=== PATIENT | male | born 1965 | race Caucasian/White ===

== ENCOUNTER 2016-09-25 20:43 | Emergency (ER) | payer BC ==
[2016-09-25 20:47] VITALS: BP 116/87
--- NOTE | 2016-09-25 21:36 | UC ---
Abdominal Pain Male HPI - HPI Summary HPI Summary: 4 DAYS OF LOOSE STOOL AND ABDOMINAL CRAMPING. NO N/V. NO NEW MEDS OR RECENT TRAVEL. NO NEW/QUESTIONABLE FOODS. NO FEVER BUT HAS HAD CHILLS. - History of Current Complaint Chief Complaint: UCAbdominalPain Stated Complaint: DIARRHEA,STOMACH CRAMPS Time Seen by Provider: 09/25/16 21:28 Hx Obtained From: Patient Onset/Duration: Gradual Onset, Lasting Days, Still Present Severity Initially: Moderate Severity Currently: Moderate Pain Intensity: 0 Pain Scale Used: 0-10 Numeric Location: Diffuse Radiates: No Character: Cramping Aggravating Factor(s):: Food Alleviating Factor(s): Nothing Associated Signs And Symptoms: Positive: Diarrhea. Negative: Blood in Stool, Urinary Symptoms, Decreased Appetite, Nausea, Vomiting - Allergies/Home Medications Allergies/Adverse Reactions: Allergies Allergy/AdvReac Type Severity Reaction Status Date / Time SKIN CREAM - ?NAME Allergy Severe BLOTCHY Uncoded 09/25/16 20:47 SKIN Home Medications: Home Medications Loperamide CAP* [Imodium CAP*] 2 cap PO PRN 09/25/16 [History] PMH/Surg Hx/FS Hx/Imm Hx Cardiovascular History: Cardiac Disease - CARDIOMYOPATHY, Hypertension - Surgical History Surgical History: Yes Surgery Procedure, Year, and Place: LT KNEE SURGERY A CHILD. CARDIAC CATHERIZATION - Family History Known Family History: Positive: Hypertension - Social History Alcohol Use: Occasionally Substance Use Type: None Smoking Status (MU): Never Smoked Tobacco Have You Smoked in the Last Year: No - Immunization History Hx Tetanus, Diphtheria Vaccination: No Vaccination Up to Date: No Review of Systems Constitutional: Chills Respiratory: Negative Cardiovascular: Negative Gastrointestinal: Abdominal Pain, Diarrhea Genitourinary: Negative All Other Systems Reviewed And Are Negative: Yes Physical Exam Triage Information Reviewed: Yes Appearance: Well-Appearing, No Pain Distress, Well-Nourished Vital Signs: Initial Vital Signs Temp 97.5 F 09/25/16 20:44 Pulse 92 09/25/16 20:44 Resp 16 09/25/16 20:44 BP 116/87 09/25/16 20:44 Pulse Ox 99 09/25/16 20:44 Vital Signs Reviewed: Yes Eyes: Positive: Conjunctiva Clear ENT: Positive: Hearing grossly normal Neck: Positive: Supple Respiratory: Positive: No respiratory distress, No accessory muscle use Cardiovascular: Positive: Pulses Normal Abdomen Description: Positive: Soft, Distended, Other: - MILDLY TENDER DIFFUSELY. Negative: CVA Tenderness (R), CVA Tenderness (L), Guarding Bowel Sounds: Positive: Present Musculoskeletal: Positive: No Edema Neurological: Positive: Alert Psychological: Positive: Age Appropriate Behavior Skin: Negative: rashes Abd Pain Male Course/Dx - Course Course Of Treatment: STOOL SAMPLE SENT FOR TESTING. EMPIRIC TX WITH METRONIDAZOLE. F/U GI IF NEEDED. - Differential Dx/Clinical Impression Provider Diagnoses: DIARRHEA Discharge - Discharge Plan Condition: Stable Disposition: HOME Prescriptions: Diphenoxylat/Atrop 2.5-0.025M* [Lomotil TAB*] 1 - 2 tab PO QID PRN #20 tab MDD 8 PRN Reason: Diarrhea Metronidazole [Flagyl 500 MG TAB] 500 mg PO TID #28 tab Patient Education Materials: Acute Diarrhea (ED) Referrals: Christopher Mary MD [Primary Care Provider] - If Needed Bennett Meeks MD [Medical Doctor] - 1 Week Additional Instructions: STOOL SENT FOR TESTING TODAY. WILL TREAT EMPIRICALLY WITH METRONIDAZOLE. FOLLOW- UP WITH GI IF NOT IMPROVING WITH TREATMENT. GO TO THE ER WITHOUT FAIL IF YOUR SYMPTOMS WORSEN OR IF YOU DEVELOP BRIGHT RED BLOOD PER RECTUM.
[2016-09-25] MEDS ORDERED: metroNIDAZOLE TAB* 250 MG PO ONE ×2 (21:58→21:59)
--- NOTE | 2016-09-28 18:01 | UC ---
Progress - Progress Note Progress Note: Pt is + for Giardia is on correct treatment Flagyl---call patient notify of results and assure he is tolerating antibiotic well and sx are improving--If sx continue please follow with Dr. Mary..
== END 2016-09-25 22:35 | disposition home or self-care (01) ==
LOC: UCEAST 20:43
DX: A07.1 Giardiasis [lambliasis] (principal); I10 Essential (primary) hypertension; I42.9 Cardiomyopathy, unspecified
CPT/HCPCS: 83630; 87045; 87046; 87328; 87329; 87493; 87899; 99212; A9270-GY; G0463

== ENCOUNTER 2017-01-29 09:07 | Emergency (ER) | payer SELFPAY ==
[2017-01-29] MEDS ORDERED: Ibuprofen TAB* 600 MG PO ONE (09:18)
--- NOTE | 2017-01-29 10:16 | UC ---
Shoulder Pain HPI - HPI Summary HPI Summary: right shoulder injury happened while lifting chairs at work this morning-pain in shoulder radiating down arm fleeting and worse in certian positions - History of Current Complaint Chief Complaint: UCUpperExtremity Stated Complaint: SHOULDER INJURY Time Seen by Provider: 01/29/17 10:15 Hx Obtained From: Patient Onset/Duration: Sudden Onset, Lasting Hours Timing: Constant - with waxing and waneing shots of pain Severity Initially: Moderate Severity Currently: Moderate Location Of Pain: Is Discrete @ - right shoulder with extension in to upper arm Character: Sharp, Unable to Describe - stabbing Aggravating Factor(s): Movement Alleviating Factor(s): Rest Associated Signs And Symptoms: Positive: Negative Related History: Occupational Injury, Dominant Hand Right - Allergies/Home Medications Allergies/Adverse Reactions: Allergies Allergy/AdvReac Type Severity Reaction Status Date / Time SKIN CREAM - ?NAME Allergy Severe BLOTCHY Uncoded 01/29/17 09:15 SKIN Home Medications: Home Medications Lisinopril TAB* [Prinivil TAB 10 MG*] 10 mg PO DAILY 01/29/17 [History Confirmed 01/29/17] PMH/Surg Hx/FS Hx/Imm Hx Previously Healthy: No Cardiovascular History: Hypertension Other Cardiovascular History: Cardiomyopathy - Surgical History Surgical History: Yes Surgery Procedure, Year, and Place: LT KNEE SURGERY A CHILD. CARDIAC CATHERIZATION - Family History Known Family History: Positive: None, Hypertension - Social History Occupation: Employed Full-time Lives: With Family Alcohol Use: Occasionally Substance Use Type: None Smoking Status (MU): Never Smoked Tobacco Have You Smoked in the Last Year: No - Immunization History Most Recent Influenza Vaccination: Not UTD Hx Tetanus, Diphtheria Vaccination: No Vaccination Up to Date: No Review of Systems Constitutional: Negative Skin: Negative Eyes: Negative ENT: Negative Respiratory: Negative Cardiovascular: Negative Gastrointestinal: Negative Genitourinary: Negative Motor: Negative Neurovascular: Negative Musculoskeletal: Arthralgia - right shoulder Neurological: Negative Psychological: Negative Is Patient Immunocompromised?: No All Other Systems Reviewed And Are Negative: Yes Physical Exam Triage Information Reviewed: Yes Appearance: Well-Appearing, No Pain Distress, Well-Nourished Vital Signs: Initial Vital Signs Temp 97.2 F 01/29/17 09:11 Pulse 75 01/29/17 09:11 Resp 16 01/29/17 09:11 BP 164/103 12/08/17 09:11 Pulse Ox 97 01/29/17 09:11 Vital Signs Reviewed: Yes Eye Exam: Normal Eyes: Positive: Conjunctiva Clear ENT Exam: Normal ENT: Positive: Normal ENT inspection, Hearing grossly normal. Negative: Nasal congestion, Trismus, Muffled voice, Hoarse voice Dental Exam: Normal Neck exam: Normal Neck: Positive: Supple, Nontender Respiratory Exam: Normal Respiratory: Positive: Chest non-tender, No respiratory distress, No accessory muscle use Cardiovascular Exam: Normal Cardiovascular: Positive: RRR, Pulses Normal, Brisk Capillary Refill Musculoskeletal Exam: Normal Musculoskeletal: Positive: Strength Intact, ROM Intact, No Edema, Other: - some positions make pain worse Neurological Exam: Normal Neurological: Positive: Alert, Muscle Tone Normal Psychological Exam: Normal Skin Exam: Normal Diagnostics - Radiology No standard instances Xray Interpretation: Positive (See Comments) - evidence of old avulsion fracture Radiology Interpretation Completed By: Radiologist Re-Evaluation - Re-Evaluation First Eval Change: Improved Shoulder Course/Dx - Course Assessment/Plan: ibuprofen rice follow with ortho this comming week - Differential Dx/Diagnosis Provider Diagnoses: Right shoulder pain Discharge - Discharge Plan Condition: Stable Disposition: HOME Prescriptions: Meloxicam(NF) [Mobic(NF)] 7.5 mg PO BID #30 tab Patient Education Materials: Hypertension (ED), Shoulder Pain (ED) Forms: *Work Release Referrals: Ernesto Fox MD [Medical Doctor] - 3 Days Drake Sanchez MD [Medical Doctor] - 1 Week
--- NOTE | 2017-01-29 10:52 | RAD ---
HISTORY: Right shoulder pain, injury COMPARISONS: None VIEWS: 4, Frontal internal rotation, external rotation, outlet, and axillary views of the right shoulder FINDINGS: BONE DENSITY: Normal. BONES: There is a well-corticated bone fragment along the superior glenoid JOINTS: There is no arthropathy. ALIGNMENT: There is no dislocation. SOFT TISSUES: Unremarkable. OTHER FINDINGS: None. IMPRESSION: WELL-CORTICATED BONE FRAGMENT ALONG THE SUPERIOR GLENOID WHICH MAY REFLECT REMOTE AVULSION INJURY. NO ACUTE OSSEOUS INJURY. IF SYMPTOMS PERSIST, RECOMMEND REPEAT IMAGING
[2017-01-29 11:15] VITALS: BP 160/112
== END 2017-01-29 11:23 | disposition home or self-care (01) ==
LOC: UCEAST 09:07
DX: M25.511 Pain in right shoulder (principal); I10 Essential (primary) hypertension; I42.9 Cardiomyopathy, unspecified
CPT/HCPCS: 99212; A9270-GY; G0463

== ENCOUNTER 2017-07-07 14:50 | Emergency (ER) | payer BC ==
[2017-07-07 14:59] VITALS: BP 157/102
--- OUTSIDE RECORDS SUMMARY | 2017-07-07 15:10 | XMS REPORT ---
:1965 External Reference #:[id number] Author Organization [employer] Address [address] [place] [address] Phone [phone] Care Team Providers Name Role Phone Christopher Mary M.D. 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 Active Family History Date Family Member(s) Problem(s) Comments General Glaucoma Cousins Father No Current Problems Mother No Current Problems Social History Type Date Description Comments Marital Status Legal Status: Occup[employer] Work Status Full-Time Employment ETOH Use Occasionally consumes alcohol Smoking Patient has never smoked Recreational Drug Use Denies Drug Use Daily Caffeine Consumes on average 2 cups of regular coffee per day Allergies, Adverse Reactions, Alerts Date Description Reaction Status Severity Comments 05/08/2015 NKDA active Medications Medication Date Status Form Strength Qnty SIG Indications Ordering Provider Praluent Active Solution 75mg/ml Kelly Fernandes 00 Pen-Inject [employer]IST[employer] Diltiazem HCL ER Hx Caps ER 24HR 120mg Unknown Coated Beads 06/23/20 18 Pravastatin Hx Tablets 10mg Unknown Sodium - 06/24/19 18 Results Description No Information Procedures Date CPT Code Description Status 05/08/2015 38357 Determination Of Refractive State Completed 05/08/2015 78940 New Patient Comprehensive Exam Completed Plan of Care 06/24/2017 - Norma Bhat O.D.H25.813 Combined forms of age-related cataract, bilateralComments:You have been diagnosed with cataracts. If you are happy with your vision as it is now, then we willsee you at your next scheduled appointment. If you feel like your vision is getting worse before your scheduled appointment, please call Candice or Usha at [phone]. Smoking can increase the riskof developing or worsening any eye related disease, as well as affect your overall health. If you are a smoker, we strongly recommend that you quit.If you are not a smoker, we strongly recommend that you do not start.Follow up:1 Year Follow Up
--- NOTE | 2017-07-07 15:46 | RAD ---
Indication: Chest pain. 2 views the chest including dual energy PA views demonstrates no mediastinal shift. Heart is of normal size and configuration. Lung mckeon appear clear. IMPRESSION: No active cardiopulmonary disease is noted.
--- NOTE | 2017-07-07 15:47 | RAD ---
Indication: Left shoulder pain. 3 views of left shoulder demonstrates AC joint arthritis. No fracture is noted. IMPRESSION: AC joint arthritis without fracture.
[2017-07-07] MEDS ORDERED: Ketorolac INJ* 60 MG/2 ML VIAL IM ONE (16:14)
--- NOTE | 2017-07-07 16:17 | UC ---
Carolina Boudreaux Julia, scribed for Ajith Dalton MD on 07/07/17 at 1517 . Upper Extremity HPI - HPI Summary HPI Summary: This patient is a 51 year old M presenting to [facility] with a chief complaint of intermittent left shoulder pain for the past three days. Pain is rated 4/10. Pain increases with movement and deep inspiration. Denies fever and chills. Patient denies other symptoms and history of trauma. However, patient frequently does heavy lifting. - History of Current Complaint Chief Complaint: UCUpperExtremity Stated Complaint: SHOULDER PAIN Time Seen by Provider: 07/07/17 14:59 Hx Obtained From: Patient Onset/Duration: Lasting Days Pain Intensity: 4 Pain Scale Used: 0-10 Numeric Location Of Pain: Is Discrete @ - left shoulder Aggravating Factor(s): Lifting, Other - deep inspiration Alleviating Factor(s): Nothing Associated Signs And Symptoms: Positive: Other - SOB - Allergies/Home Medications Allergies/Adverse Reactions: Allergies Allergy/AdvReac Type Severity Reaction Status Date / Time SKIN CREAM - ?NAME Allergy Severe BLOTCHY Uncoded 02/09/17 10:33 SKIN Home Medications: Home Medications Alirocumab [Praluent Pen] 75 mg SC 07/07/17 [History] Labetalol TAB* [Trandate TAB*] 100 mg PO BID 07/07/17 [History Confirmed ] PMH/Surg Hx/FS Hx/Imm Hx Cardiovascular History: Cardiac Disease - Surgical History Surgical History: Yes Surgery Procedure, Year, and Place: LT KNEE SURGERY A CHILD. CARDIAC CATHERIZATION - Family History Known Family History: Positive: Hypertension - Social History Alcohol Use: Occasionally Substance Use Type: None Smoking Status (MU): Never Smoked Tobacco Have You Smoked in the Last Year: No - Immunization History Most Recent Influenza Vaccination: Not UTD Hx Tetanus, Diphtheria Vaccination: No Vaccination Up to Date: No Review of Systems Constitutional: Negative Musculoskeletal: Myalgia - left shoulder pain All Other Systems Reviewed And Are Negative: Yes Physical Exam - Summary Physical Exam Summary: VITAL SIGNS: Reviewed. GENERAL: Patient is a well-developed and nourished male who is lying comfortable in the stretcher. Patient is not in any acute respiratory distress. HEAD AND FACE: Normocephalic EYES: PERRLA, EOMI x 2. EARS: Hearing grossly intact. MOUTH: Oropharynx within normal limits. NECK: Supple, trachea is midline, no adenopathy, no JVD, no carotid bruit. CHEST: Symmetric, no tenderness at palpation LUNGS: Clear to auscultation bilaterally. No wheezing or crackles. CVS: Regular rate and rhythm, S1 and S2 present, no murmurs or gallops appreciated. ABDOMEN: Soft, non-tender. Bowel sounds are normal. No abdominal abnormal pulsations. EXTREMITIES: Full ROM in all major joints, no edema, no cyanosis or clubbing. Left shoulder: no ecchymosis, no deformity, no crepitation, FROM, point tenderness to posterior aspect of left shoulder NEURO: Alert and oriented x 3. No acute neurological deficits. Speech is normal and follows commands. SKIN: Dry and warm Triage Information Reviewed: Yes Vital Signs: Initial Vital Signs Temp 99.1 F 07/07/17 14:55 Pulse 100 07/07/17 14:55 Resp 18 07/07/17 14:55 BP 157/102 07/07/17 14:55 Pulse Ox 99 07/07/17 14:55 Vital Signs Reviewed: Yes Diagnostics - Radiology CXR Radiology Interpretation Completed By: Radiologist - No active cardiopulmonary disease is noted. Dr. Dalton has reviewed this report. Left Shoulder XR Radiology Interpretation Completed By: Radiologist - AC joint arthritis without fracture. Dr. Dalton has reviewed this report. - EKG Cardiac Rate: NL - 84 BPM Cardiac Rhythm: Sinus: Normal - at 15:21, no ST elevations, nml axis Upper Extremity Course/Dx - Course Course Of Treatment: Patient presents with a left shoulder pain. He does a lot of heavy lifting. He denies any history of trauma. EKG shows no acute pathology. X-rays of the left shoulder and chest negative for acute pathology. I believe that the patient has some arthralgia or a rotator cuff injury therefore the patient was given Toradol for pain. He will also be given a prescription for naproxen, follow up with primary care physician. She was instructed to return to the urgent care or the emergency room he develops any fever, chills, worsening pain, or any other symptom. He understands and agrees. All his concerns were addressed and there is no further questions. He is hemodynamically stable alert and oriented 3. - Differential Dx/Diagnosis Provider Diagnoses: Left shoulder pain Discharge - Sign-Out/Discharge Documenting (check all that apply): Discharge/Admit/Transfer - Discharge Plan Condition: Stable Disposition: HOME Prescriptions: Naproxen [Naproxen 500 mg tab] 500 mg PO BID #20 tablet Patient Education Materials: Arthralgia (ED), Shoulder Pain (ED) Referrals: Christopher Mary MD [Primary Care Provider] - Additional Instructions: Take medications as instructed Increase your fluid intake Return to the UC if symptoms worsen - Billing Disposition and Condition Condition: STABLE Disposition: HOME The documentation as recorded by the Carolina buckley Julia accurately reflects the service I personally performed and the decisions made by , Ajith Dalton MD.
== END 2017-07-07 16:26 | disposition home or self-care (01) ==
LOC: UCEAST 14:50
DX: M25.512 Pain in left shoulder (principal); M19.012 Primary osteoarthritis, left shoulder; R07.89 Other chest pain; R06.02 Shortness of breath; I51.9 Heart disease, unspecified
CPT/HCPCS: 71046; 93005; 96372; 99212; G0463; J1885

== ENCOUNTER 2017-07-08 17:57 | Observation (INO) | payer BC ==
[2017-07-08] MEDS ORDERED: HYDROmorphone INJ* 2 MG/ML CARPUJECT SYRINGE IV SLOW PU ONE (18:09)
[2017-07-08] MEDS ORDERED: Ketorolac INJ* 30 MG/ML 1 ML VIAL IV PUSH ONE (18:09)
[2017-07-08 18:18] LABS: ABS Basophils 0 10^3/ul (0-0.2); ABS Eosinophils 0.2 10^3/ul (0-0.6); ABS Lymphocytes 1.7 10^3/ul (1.0-4.8); ABS Monocytes 0.7 10^3/ul (0-0.8); ABS Neutrophils 3.8 10^3/ul (1.5-7.7); ABS Nucleated RBC 0 10^3/ul; Eosinophil % 2.6 % (0-6); Hematocrit 40 % (42-52); Hemoglobin 14.2 g/dl (14.0-18.0); Lymphocyte % 26.3 % (25-47); Mean Corpuscular HGB Conc 35 g/dl (31-36); Mean Corpuscular Hemoglobin 32 pg (27-31); Mean Corpuscular Volume 89 fL (80-94); Mean Platelet Volume 7.7 um3 (7.4-10.4); Nucleated Red Blood Cells % 0; Platelet Count 217 10^3/ul (150-450); Red Blood Count 4.49 10^6/ul (4.0-5.4); Red Cell Distribution Width 13 % (10.5-15); White Blood Count 6.3 10^3/ul (3.5-10.8)
[2017-07-08 18:44] LABS: EGFR Non-African American 65.5 (>60)
[2017-07-08] MEDS ORDERED: Iohexol 350* (CONTRAST) 500 ML MDV IV ONE (19:09)
--- NOTE | 2017-07-08 19:36 | RAD ---
Indication: Chest pain. Single frontal view of the chest performed at 1859 hours was reviewed. Comparison is made with previous exam dated July 07, 2017. No mediastinal shift is noted. Heart is of normal size and configuration. Lung mckeon appear clear. IMPRESSION: NO ACTIVE CARDIOPULMONARY DISEASE IS NOTED.
--- NOTE | 2017-07-08 21:22 | RAD ---
Indication: Pleuritic chest pain Contrast: Administered 84.1 ml of Contrast -- mg/ml CTA of the chest was performed after IV contrast administration. Coronal and sagittal reconstructed images were obtained. The pulmonary arterial tree is well opacified. There are no filling defects present to suggest pulmonary embolus. The aorta demonstrates no evidence of aneurysmal dilatation or thoracic aortic dissection. Small left pleural effusion and small right pleural effusion is noted. Bibasilar atelectasis is noted. The trachea and major bronchi appear patent. The heart demonstrates no pericardial effusion. There is slightly enlarged liver noted. There is no mediastinal or hilar adenopathy noted. The axilla demonstrates no evidence of abnormal adenopathy. Bony structures are otherwise unremarkable. Prominent vascular markings may represent vascular congestion. An element of CHF may be present. IMPRESSION: No evidence of pulmonary embolus is noted. Bilateral pleural effusion with bibasilar atelectasis. Likely CHF is present.
[2017-07-08] MEDS ORDERED: traMADol TAB* 50 MG PO PRN (22:27)
[2017-07-08] MEDS ORDERED: Ondansetron ODT TAB* 4 MG PO PRN (22:27)
[2017-07-08] MEDS ORDERED: CMCS: Melatonin (NF) 3 MG TAB PO PRN (22:27)
[2017-07-08] MEDS ORDERED: Acetaminophen TAB* 325 MG PO PRN (22:27)
[2017-07-08] MEDS ORDERED: NS 0.9% 1000 ML* 1,000 ML IV SCH (22:30)
--- NOTE | 2017-07-08 22:30 | HP ---
H&P (Free Text) History and Physical: PCP: Narda Mary MD Cardiology: Sara Sanchez MD Date/Time: 07/08/2017 2220 CC: chest pain HPI: Mr Metz is a 51YO male HX cardiomyopathy, HTN, HLD who presents with onset of non-exertional non-radiating mild/mod L parasternal chest pressure around 1630 exacerbated by inspiration, but without SOB, N/V, sweats, palpitations, or light-headedness. There has been no cough, congestion, F/C, injury, increase in activity, or other issues. PMedHx cardiomyopathy HTN HLD Ambulatory Orders Alirocumab [Praluent Pen] 75 mg SC .EVERYTWOWEEKS 07/07/17 Labetalol TAB* [Trandate TAB*] 100 mg PO BID 07/07/17 Naproxen [Naproxen 500 mg tab] 500 mg PO BID #20 tablet 07/07/17 Allergies SKIN CREAM - ?NAME Allergy (Severe, Uncoded 02/09/17 10:33) BLOTCHY SKIN PSurgHx tonsillectomy SocHx: no tobacco, 3-4 beers/wk, no recreational drugs; lives with his ; works as a secretary bookkeeper; full code status FamHx: Mother passed at 54 2nd CAD. Father passed of CAD at 68 2nd CAD. ROS: as above, otherwise reviewed and all were negative vitals: Vital Signs Temp 36.6 C 07/09/17 00:24 Pulse 72 07/09/17 00:24 Resp 18 07/09/17 00:24 BP 149/92 07/09/17 00:24 Pulse Ox 100 07/09/17 00:24 Intake & Output 07/08/17 07/08/17 07/09/17 11:59 23:59 11:59 Weight 110.268 kg Constitutional: NAD, normally developed, obese white male HEENM: atraumatic; sclera/conjunctiva: anicteric/clear; hearing: clinically intact; oropharynx: clear, mucosa moist Neck: soft tissue: non-tender; thyroid: normal Pulmonary: clear to auscultation bilaterally, good aeration, no accessory muscle use CV: RR/RR, normal S1S2, no carotid bruit, no jugular venous distention, 2+ B DP/ PT, no edema Abdominal: soft, non-distended, non-tender, no rebound/guarding/rigidity, normoactive bowel sounds, no hepatosplenomegaly or masses, no costovertebral angle tenderness Musculoskeletal: general: grossly intact, non-tender; chest pain is reproducible with L parasternal palpation Integumental: normal appearance and texture of exposed skin Psychiatric orientation: AA&O to PPS affect: calm mood: cooperative eye contact: fair content: reliable responses: timely insight: good Testing: Lab Results 07/08/17 07/08/17 07/08/17 Range/Units 18:00 18:00 18:00 WBC 6.3 (3.5-10.8) 10^3/ul RBC 4.49 (4.0-5.4) 10^6/ul Hgb 14.2 (14.0-18.0) g/dl Hct 40 L (42-52) % MCV 89 (80-94) fL MCH 32 H (27-31) pg MCHC 35 (31-36) g/dl RDW 13 (10.5-15) % Plt Count 217 (150-450) 10^3/ul MPV 7.7 (7.4-10.4) um3 Neut % (Auto) 59.4 (38-83) % Lymph % (Auto) 26.3 (25-47) % Dare % (Auto) 11.3 H (0-7) % Eos % (Auto) 2.6 (0-6) % Baso % (Auto) 0.4 (0-2) % Absolute Neuts (auto) 3.8 (1.5-7.7) 10^3/ul Absolute Lymphs (auto) 1.7 (1.0-4.8) 10^3/ul Absolute Monos (auto) 0.7 (0-0.8) 10^3/ul Absolute Eos (auto) 0.2 (0-0.6) 10^3/ul Absolute Basos (auto) 0 (0-0.2) 10^3/ul Absolute Nucleated RBC 0 10^3/ul Nucleated RBC % 0 INR (Anticoag Therapy) (0.77-1.02) APTT (26.0-36.3) seconds D-Dimer, Quantitative (Less Than 230) ng/mL Sodium 139 (139-145) mmol/L Potassium 4.1 (3.5-5.0) mmol/L Chloride 105 (101-111) mmol/L Carbon Dioxide 27 (22-32) mmol/L Anion Gap 7 (2-11) mmol/L BUN 15 (6-24) mg/dL Creatinine 1.17 (0.67-1.17) mg/dL Est GFR ( Amer) 84.2 (>60) Est GFR (Non-Af Amer) 65.5 (>60) BUN/Creatinine Ratio 12.8 (8-20) Glucose 119 H (70-100) mg/dL Lactic Acid 1.0 (0.5-2.0) mmol/L Calcium 8.6 (8.6-10.3) mg/dL Total Bilirubin 0.80 (0.2-1.0) mg/dL AST 14 (13-39) U/L ALT 17 (7-52) U/L Alkaline Phosphatase 49 (34-104) U/L Troponin I 0.00 (<0.04) ng/mL B-Natriuretic Peptide ( - 100) pg/mL Total Protein 6.8 (6.4-8.9) g/dL Albumin 4.0 (3.2-5.2) g/dL Globulin 2.8 (2-4) g/dL Albumin/Globulin Ratio 1.4 (1-3) 07/08/17 07/08/17 07/08/17 Range/Units 18:00 18:00 21:03 WBC (3.5-10.8) 10^3/ul RBC (4.0-5.4) 10^6/ul Hgb (14.0-18.0) g/dl Hct (42-52) % MCV (80-94) fL MCH (27-31) pg MCHC (31-36) g/dl RDW (10.5-15) % Plt Count (150-450) 10^3/ul MPV (7.4-10.4) um3 Neut % (Auto) (38-83) % Lymph % (Auto) (25-47) % Dare % (Auto) (0-7) % Eos % (Auto) (0-6) % Baso % (Auto) (0-2) % Absolute Neuts (auto) (1.5-7.7) 10^3/ul Absolute Lymphs (auto) (1.0-4.8) 10^3/ul Absolute Monos (auto) (0-0.8) 10^3/ul Absolute Eos (auto) (0-0.6) 10^3/ul Absolute Basos (auto) (0-0.2) 10^3/ul Absolute Nucleated RBC 10^3/ul Nucleated RBC % INR (Anticoag Therapy) (0.77-1.02) APTT (26.0-36.3) seconds D-Dimer, Quantitative < 200 (Less Than 230) ng/mL Sodium (139-145) mmol/L Potassium (3.5-5.0) mmol/L Chloride (101-111) mmol/L Carbon Dioxide (22-32) mmol/L Anion Gap (2-11) mmol/L BUN (6-24) mg/dL Creatinine (0.67-1.17) mg/dL Est GFR ( Amer) (>60) Est GFR (Non-Af Amer) (>60) BUN/Creatinine Ratio (8-20) Glucose (70-100) mg/dL Lactic Acid (0.5-2.0) mmol/L Calcium (8.6-10.3) mg/dL Total Bilirubin (0.2-1.0) mg/dL AST (13-39) U/L ALT (7-52) U/L Alkaline Phosphatase (34-104) U/L Troponin I 0.00 (<0.04) ng/mL B-Natriuretic Peptide 11 ( - 100) pg/mL Total Protein (6.4-8.9) g/dL Albumin (3.2-5.2) g/dL Globulin (2-4) g/dL Albumin/Globulin Ratio (1-3) 07/09/17 07/09/17 07/09/17 Range/Units 00:29 00:29 00:29 WBC 7.6 (3.5-10.8) 10^3/ul RBC 4.54 (4.0-5.4) 10^6/ul Hgb 14.3 (14.0-18.0) g/dl Hct 41 L (42-52) % MCV 90 (80-94) fL MCH 31 (27-31) pg MCHC 35 (31-36) g/dl RDW 13 (10.5-15) % Plt Count 198 (150-450) 10^3/ul MPV 8.0 (7.4-10.4) um3 Neut % (Auto) 78.8 (38-83) % Lymph % (Auto) 13.0 L (25-47) % Dare % (Auto) 7.6 H (0-7) % Eos % (Auto) 0.2 (0-6) % Baso % (Auto) 0.4 (0-2) % Absolute Neuts (auto) 6.0 (1.5-7.7) 10^3/ul Absolute Lymphs (auto) 1.0 (1.0-4.8) 10^3/ul Absolute Monos (auto) 0.6 (0-0.8) 10^3/ul Absolute Eos (auto) 0 (0-0.6) 10^3/ul Absolute Basos (auto) 0 (0-0.2) 10^3/ul Absolute Nucleated RBC 0 10^3/ul Nucleated RBC % 0 INR (Anticoag Therapy) 0.96 (0.77-1.02) APTT 29.0 (26.0-36.3) seconds D-Dimer, Quantitative (Less Than 230) ng/mL Sodium (139-145) mmol/L Potassium (3.5-5.0) mmol/L Chloride (101-111) mmol/L Carbon Dioxide (22-32) mmol/L Anion Gap (2-11) mmol/L BUN 16 (6-24) mg/dL Creatinine 0.98 (0.67-1.17) mg/dL Est GFR ( Amer) 103.3 (>60) Est GFR (Non-Af Amer) 80.3 (>60) BUN/Creatinine Ratio (8-20) Glucose (70-100) mg/dL Lactic Acid (0.5-2.0) mmol/L Calcium (8.6-10.3) mg/dL Total Bilirubin (0.2-1.0) mg/dL AST (13-39) U/L ALT (7-52) U/L Alkaline Phosphatase (34-104) U/L Troponin I (<0.04) ng/mL B-Natriuretic Peptide ( - 100) pg/mL Total Protein (6.4-8.9) g/dL Albumin (3.2-5.2) g/dL Globulin (2-4) g/dL Albumin/Globulin Ratio (1-3) 07/09/17 07/09/17 Range/Units 00:29 05:03 WBC (3.5-10.8) 10^3/ul RBC (4.0-5.4) 10^6/ul Hgb (14.0-18.0) g/dl Hct (42-52) % MCV (80-94) fL MCH (27-31) pg MCHC (31-36) g/dl RDW (10.5-15) % Plt Count (150-450) 10^3/ul MPV (7.4-10.4) um3 Neut % (Auto) (38-83) % Lymph % (Auto) (25-47) % Dare % (Auto) (0-7) % Eos % (Auto) (0-6) % Baso % (Auto) (0-2) % Absolute Neuts (auto) (1.5-7.7) 10^3/ul Absolute Lymphs (auto) (1.0-4.8) 10^3/ul Absolute Monos (auto) (0-0.8) 10^3/ul Absolute Eos (auto) (0-0.6) 10^3/ul Absolute Basos (auto) (0-0.2) 10^3/ul Absolute Nucleated RBC 10^3/ul Nucleated RBC % INR (Anticoag Therapy) (0.77-1.02) APTT (26.0-36.3) seconds D-Dimer, Quantitative (Less Than 230) ng/mL Sodium (139-145) mmol/L Potassium (3.5-5.0) mmol/L Chloride (101-111) mmol/L Carbon Dioxide (22-32) mmol/L Anion Gap (2-11) mmol/L BUN (6-24) mg/dL Creatinine (0.67-1.17) mg/dL Est GFR ( Amer) (>60) Est GFR (Non-Af Amer) (>60) BUN/Creatinine Ratio (8-20) Glucose (70-100) mg/dL Lactic Acid (0.5-2.0) mmol/L Calcium (8.6-10.3) mg/dL Total Bilirubin (0.2-1.0) mg/dL AST (13-39) U/L ALT (7-52) U/L Alkaline Phosphatase (34-104) U/L Troponin I 0.00 0.00 (<0.04) ng/mL B-Natriuretic Peptide ( - 100) pg/mL Total Protein (6.4-8.9) g/dL Albumin (3.2-5.2) g/dL Globulin (2-4) g/dL Albumin/Globulin Ratio (1-3) ECG, personally reviewed: NSR rate 81, no ischemia CXR, personally reviewed: IMPRESSION: NO ACTIVE CARDIOPULMONARY DISEASE IS NOTED. CTA chest, personally reviewed: IMPRESSION: No evidence of pulmonary embolus is noted. Bilateral pleural effusion with bibasilar atelectasis. Likely CHF is present. Impression: 51M HX cardiomyopathy, HTN, HLD presents with chest pain for r/o ACS DIAGNOSIS & PLAN Primary chest pain r/o ACS : telemetry : aspirin : hold beta juan r 2nd borderline bradycardia : trend troponin : exercise stress test in AM : supplemental oxygen : supportive care Secondary cardiomyopathy : no acute issues HTN : continue labetalol HLD low fat diet when taking PO Ambulatory Orders Alirocumab [Praluent Pen] 75 mg SC .EVERYTWOWEEKS 07/07/17 Labetalol TAB* [Trandate TAB*] 100 mg PO BID 07/07/17 Naproxen [Naproxen 500 mg tab] 500 mg PO BID #20 tablet 07/07/17 Admission Rational: observation for r/o ACS DVTp: heparin SQ Code Status: full HCP:
[2017-07-09 00:50] LABS: ABS Basophils 0 10^3/ul (0-0.2); ABS Eosinophils 0 10^3/ul (0-0.6); ABS Monocytes 0.6 10^3/ul (0-0.8); ABS Nucleated RBC 0 10^3/ul; Eosinophil % 0.2 % (0-6); Hematocrit 41 % (42-52); Hemoglobin 14.3 g/dl (14.0-18.0); Mean Corpuscular HGB Conc 35 g/dl (31-36); Mean Corpuscular Hemoglobin 31 pg (27-31); Mean Corpuscular Volume 90 fL (80-94); Nucleated Red Blood Cells % 0; Platelet Count 198 10^3/ul (150-450); Red Blood Count 4.54 10^6/ul (4.0-5.4); Red Cell Distribution Width 13 % (10.5-15); White Blood Count 7.6 10^3/ul (3.5-10.8)
[2017-07-09 00:59] LABS: INR 0.96 (0.77-1.02)
[2017-07-09 01:35] LABS: EGFR Non-African American 80.3 (>60)
[2017-07-09] MEDS ORDERED: Heparin VIAL(*) 5000 UNITS/ML VIAL (FIVE THOUSAND) SUBCUT SCH (06:00)
[2017-07-09] MEDS ORDERED: Omeprazole CAP* 20 MG PO SCH (06:00)
[2017-07-09] MEDS ORDERED: Labetalol TAB* 100 MG PO SCH (09:00)
[2017-07-09] MEDS ORDERED: Docusate CAP* 100 MG PO SCH (09:00)
[2017-07-09 16:25] VITALS: BP 113/72
--- NOTE | 2017-07-09 18:58 | ED ---
Irene Boudreaux Gabriel, scribed for Salvatore Neumann MD on 07/08/17 at 1803 . HPI Chest Pain - HPI Summary HPI Summary: This patient is a 51 year old M BIBA for acute left sided CP that began today at 1630. Pt was cleaning his hot tub today when the pain began it is 10/10 and describes it as a crushing pain. There was no radiation and he denies SOB. He was given 4 of .04 sublingual NTG, morphine, and 324 ASA by EMS but there was no pain relief. Hx HTN and HLD Patient reports intermittent shoulder pain and palpitations. visit for left shoulder pain last night. NKDA. Family history of CAD. - History of Current Complaint Hx Obtained From: Patient Onset/Duration: Started Hours Ago, Still Present Time of Onset: 16:30 Timing: Constant Initial Severity: Severe Current Severity: Severe Pain Intensity: 10 Pain Scale Used: 0-10 Numeric Chest Pain Location: Left Anterior Chest Pain Radiates: No Character: Crushing Associated Signs and Symptoms: Positive: Negative - SOB, Other: - shoulder pain - Allergy/Home Medications Allergies/Adverse Reactions: Allergies Allergy/AdvReac Type Severity Reaction Status Date / Time SKIN CREAM - ?NAME Allergy Severe BLOTCHY Uncoded 02/09/17 10:33 SKIN PMH/Surg Hx/FS Hx/Imm Hx Endocrine/Hematology History: Denies: Hx Diabetes Cardiovascular History: Reports: Hx Hypercholesterolemia, Hx Hypertension Denies: Hx Pacemaker/ICD Respiratory History: Denies: Hx Chronic Obstructive Pulmonary Disease (COPD) GI History: Denies: Hx Gall Bladder Disease History: Denies: Hx Renal Disease Sensory History: Denies: Hx Hearing Aid Psychiatric History: Denies: Hx Panic Disorder - Surgical History Surgery Procedure, Year, and Place: LT KNEE SURGERY A CHILD. CARDIAC CATHERIZATION - Family History Known Family History: Positive: Cardiac Disease, Hypertension Negative: Diabetes, Respiratory Disease - Social History Occupation: Employed Full-time Lives: With Family Alcohol Use: Occasionally Substance Use Type: Reports: None Hx Tobacco Use: No Smoking Status (MU): Never Smoked Tobacco Have You Smoked in the Last Year: No Review of Systems Negative: Fever, Chills Negative: Erythema Negative: Sore Throat Positive: Palpitations, Chest Pain Negative: Shortness Of Breath, Cough Negative: Abdominal Pain, Vomiting, Nausea Negative: dysuria, hematuria Negative: Myalgia, Edema Positive: Other - shoulder pain . Negative: Rash Neurological: Negative - dizziness All Other Systems Reviewed And Are Negative: Yes Physical Exam - Summary Physical Exam Summary: Constitutional: Well-developed, Well-nourished, Alert. (-) Distressed Skin: Warm, Dry HENT: Normocephalic; Atraumatic Eyes: Conjunctiva normal Neck: Musculoskeletal ROM normal neck. (-) JVD, (-) Stridor, (-) Tracheal deviation Cardio: frequent PVCs, Heart sounds normal; Intact distal pulses; The pedal pulses are 2+ and symmetric. Radial pulses are 2+ and symmetric. (-) Murmur Pulmonary/Chest wall: reproducible pain with palpation of the 4th costochondral mid claviclular region. The pain is also reproducible with shoulder flexion. Abd: Soft, (-) Tenderness, (-) Distension, (-) Guarding, (-) Rebound Musculoskeletal: (-) Edema Lymph: (-) Cervical adenopathy Neuro: Alert, Oriented x3 Psych: Mood and affect Normal Triage Information Reviewed: Yes Vital Signs Reviewed: Yes Diagnostics - Laboratory Result Diagrams: 07/08/17 18:00 07/08/17 18:00 Lab Statement: Any lab studies that have been ordered have been reviewed, and results considered in the medical decision making process. - Radiology CXR Radiology Interpretation Completed By: ED Physician - no acute disease - EKG 17:58 Cardiac Rate: NL EKG Rhythm: Sinus Rhythm - at 81 BPM EKG Interpretation: no STEMI Chest Pain Course/Dx - Course Assessment/Plan: This patient is a 51 year old M BIBA for acute left sided CP that began today at 1630. Pt was cleaning his hot tub today when the pain began it is 10/10 and describes it as a crushing pain. There was no radiation and he denies SOB. He was given 4 of .04 sublingual NTG, morphine, and 324 ASA by EMS but there was no pain relief. Hx HTN and HLD Patient reports intermittent shoulder pain and palpitations. UC visit for left shoulder pain last night. NKDA. Family history of CAD. An EKG reveals NSR. Pt will admitted awaiting CTA. - Diagnoses Provider Diagnoses: Chest pain, unspecified - Provider Notifications Discussed Care Of Patient With: Tevin Valdovinos Time Discussed With Above Provider: 19:16 Instructed by Provider To: Admit As Inpatient Discharge - Sign-Out/Discharge Documenting (check all that apply): Discharge/Admit/Transfer - admitted - Discharge Plan Condition: Fair Disposition: ADMITTED TO [facility] Referrals: Christopher Mary MD [Primary Care Provider] - The documentation as recorded by the Irene buckley Gabriel accurately reflects the service I personally performed and the decisions made by me, Salvatore Neumann MD.
--- NOTE | 2017-07-10 06:34 | DS ---
DISCHARGE SUMMARY: DATE OF ADMISSION: 07/08/17 DATE OF DISCHARGE: 07/09/17 PRIMARY CARE PROVIDER: Dr. Mary. PRIMARY SULFURIC ACID PLANT SUPERVISOR: Dr. Sanchez. ATTENDING PHYSICIAN WHILE IN THE HOSPITAL: Iraj Escobedo MD * ( dictated by Easton Nunez NP) PRIMARY DIAGNOSIS: Chest wall pain, suspect musculoskeletal. SECONDARY DIAGNOSES: 1. Cardiomyopathy. 2. Hypertension. 3. Hyperlipidemia. STUDIES COMPLETED WHILE IN THE HOSPITAL: 1. He had a chest x-ray on 07/08/17, radiologist's impression: No active cardiopulmonary disease is noted. 2. He had a CT of the chest on 07/08/17, radiologist's impression: No evidence of pulmonary embolus, bibasilar atelectasis, small left pleural effusion and small right pleural effusion. 3. He had an electrocardiogram on 07/08/17, showed sinus rhythm at a rate of 81. No ST changes. 4. He had an exercise stress test on 07/09/17, which was a normal and maximum exercise stress test, no ST changes were noted. There was no reproducible chest pain during exercise. The patient did have postexercise chest pain, but there was no ST depressions noted. DISCHARGE MEDICATIONS: 1. Acetaminophen 650 mg p.o. q.6 hours as needed for pain. 2. Praluent Pen 75 mg subcu every 2 weeks. 3. Labetalol 100 mg p.o. b.i.d. 4. He can take ibuprofen 400 to 600 mg every 6 hours as needed for pain unrelieved by Tylenol. HISTORY OF PRESENT ILLNESS AND HOSPITAL COURSE: Mr. Metz is a 51-year-old male with a history of cardiomyopathy, hypertension, hyperlipidemia who presented with onset of nonexertional, nonradiating, left chest pressure that started around 4:30 the day of admission. It was exacerbated by deep breath. He denied any shortness of breath, nausea, vomiting, sweats, palpitations, or lightheadedness. There was no cough or congestion. Denied fever or chills. Denied any recent injury or increased activity or any other issues. Due to his chest pain and history of cardiomyopathy, hyperlipidemia, and hypertension, the patient was admitted to the hospital for further evaluation and rule out acute coronary disease. While in the hospital, the patient was monitored on telemetry. There was no arrhythmias noted. The patient had an exercise stress test which was within normal limits. There was no ST changes. He did meet target heart rate and was considered a normal maximum exercise stress test. His troponins during the hospitalization remained within normal limits. A cycle of 3 troponins were drawn, all 3 were 0.00. His BMP was within normal limits. His CBC was essentially normal. At this time, Mr. Metz is stable for discharge home today. PHYSICAL EXAMINATION: Vital signs are as follows: Temperature 98.4, heart rate 80, respirations 20, O2 saturation 94% on room air, blood pressure 113/72. DISCHARGE PLAN: Mr. Metz will be discharged home. Activity as tolerated. 1. Chest pain. Suspect this is related to musculoskeletal, noncardiac. He had a normal exercise stress test today. He should resume his labetalol 100 mg p.o. b.i.d. I recommend that he follow up with his lumber kiln operator, Dr. Sanchez , next week. I also recommend that he follow up with his primary care provider for further evaluation. He did take Tylenol during his hospitalization with complete relief of his left-sided chest pain that was reproducible with palpation. 2. Hypertension. He should continue on his labetalol as previously prescribed. 3. Hyperlipidemia. He should continue on his Praluent. FOLLOWUP: 1. The patient should follow up with his lumber kiln operator, Dr. Sanchez, for further evaluation in 4 to 7 days. 2. He should follow up with his primary care provider as well in the next 4 to 7 days. 3. The patient was instructed to return to the emergency room for any chest pain or shortness of breath or any other concerning symptoms. Discussed with the patient that though his stress test was negative today that if he develops chest pain or worsening chest pain, he should return to the emergency room for further evaluation. This is a summarization of his hospitalization. For further details, please see the entire medical record. TIME SPENT: Time spent on this discharge was approximately 60 minutes, greater than half of that time was spent with the patient and discussing discharge plans and instructions. CONDITION ON DISCHARGE: Stable. EASTON NUNEZ, DEBORAH [id number]/[facility] #: [id number] MTDD
== END 2017-07-09 16:30 | disposition home or self-care (01) ==
LOC: ED 17:57 → MEDTELE 22:24
PROVIDERS: ADMIT Hospitalist; ATTEND Student in an Organized Health Care Education/Training Program
DX: R07.89 Other chest pain (principal); I42.9 Cardiomyopathy, unspecified; I10 Essential (primary) hypertension; E78.5 Hyperlipidemia, unspecified; R00.2 Palpitations; M25.519 Pain in unspecified shoulder
CPT/HCPCS: 36415; 71045; 71275; 80053; 82565; 83605; 83880; 84484; 84520; 85025; 85379; 85610; 85730; 93005; 96361; 96374; 96375; 99285; A9270-GY; G0378; J1170; J1644; J1885; Q9967

== ENCOUNTER 2018-04-26 07:06 | Emergency (ER) | payer BC ==
--- NOTE | 2018-04-26 07:12 | UC ---
Throat Pain/Nasal Brody HPI - HPI Summary HPI Summary: Pt presents to urgent care with 3 days progressive head congestion, sore throat , sinus congestion. Pt reports tactile temp, nausea, no vomiting. Pt has taken Nyquil and APAP with little improvement. No rash. Pt with frontal headache. Pt works at [employer]. Has not taken medication today, + body aches + frontal carrasquillo, no vision changes Medications reviewed this visit - History of Current Complaint Stated Complaint: SORE THROAT Hx Obtained From: Patient - Allergies/Home Medications Allergies/Adverse Reactions: Allergies Allergy/AdvReac Type Severity Reaction Status Date / Time naproxen Allergy See Comment Verified 04/26/18 07:17 SKIN CREAM - ?NAME Allergy Severe BLOTCHY Uncoded 04/26/18 07:17 SKIN Home Medications: Home Medications Acetaminophen TAB* [Tylenol TAB*] 1,000 mg PO Q6H PRN 04/26/18 [History Confirmed 04/26/18] Dm/PE/Acetaminophen/Doxylamine [Vicks Nyquil Severe Cold-Flu] 1 each PO ONCE PRN 04/26/18 [History Confirmed 04/26/18] PMH/Surg Hx/FS Hx/Imm Hx Previously Healthy: Yes - Surgical History Surgical History: Yes Surgery Procedure, Year, and Place: LT KNEE SURGERY A CHILD. CARDIAC CATHERIZATION - Family History Known Family History: Positive: None, Cardiac Disease, Hypertension, Non- Contributory Negative: Diabetes, Respiratory Disease - Social History Occupation: Employed Full-time Lives: With Family Alcohol Use: Occasionally Substance Use Type: None Smoking Status (MU): Never Smoked Tobacco Have You Smoked in the Last Year: No - Immunization History Most Recent Influenza Vaccination: Not UTD Hx Tetanus, Diphtheria Vaccination: No Vaccination Up to Date: No Review of Systems All Other Systems Reviewed And Are Negative: Yes Constitutional: Positive: Fever, Fatigue ENT: Positive: Sore Throat, Nasal Discharge, Sinus Congestion, Sinus Pain/ Tenderness Respiratory: Positive: Negative Physical Exam - Summary Physical Exam Summary: Vital Signs Reviewed: Yes A+Ox3, tired appearing Eyes: Conjunctiva Clear, PARAM. EOM intact and full ENT: Hearing grossly normal TM x 2 fluid b/l turbinates inflammed and boggy, + PND, mmoist, uvula midline, no exudate, mild erythema Neck: Positive: Supple Respiratory: Positive: No respiratory distress, No accessory muscle use + CTA throughout no w/r Cardiovascular: RRR nl s1, s2 no m/r CBT <2 sec abd soft + BS nt/nd no guarding, no distension Musculoskeletal Exam: WREN x 4 without difficulty Strength Intact, ROM Intact Neurological: Positive: Alert, + sensation throughout Psychological: Positive: Normal Response To Family Skin: Positive: no rash, no ecchymosis Triage Information Reviewed: Yes Throat Pain/Nasal Course/Dx - Course Course Of Treatment: Pt presents with progressive congestion, body aches, sore throat and body aches. Taking OTC med with short term relief. VSS. Pt with sinus and ear congestion, erythema throat. Will check flu and strep. anticipate abx for sinusitis, flonase. work note. secretion precaution. humidified air. rest. elevated BP - recommended f/u with pcp - Differential Dx/Diagnosis Provider Diagnosis: Sinusitis Discharge - Sign-Out/Discharge Documenting (check all that apply): Patient Departure All imaging exams completed and their final reports reviewed: No Studies - Discharge Plan Condition: Stable Disposition: HOME Prescriptions: Amoxicillin/Clavulanate TAB* [Augmentin TAB 875*] 875 mg PO BID #20 tab Fluticasone NASAL SPRAY 50MCG* [Flonase NASAL SPRAY 50MCG*] 2 spray BOTH NARES DAILY #1 btl Patient Education Materials: Rhinosinusitis (ED) Forms: *Gen. Provider Communication, *Work Release Referrals: Christopher Mary MD [Primary Care Provider] - Additional Instructions: - Stay well hydrated. Drink plenty of non-alcoholic, non-caffinated beverages. - Alternate ibuprofen (Advil, Motrin) 600mg and Tylenol every 3 hours for pain or fever. Take with food. Do NOT take for more than 4-5 days. - These infections are spread by secretions - do NOT share eating or drinking utensils - clean items you share with other people such as cell phones, computer mouse, TV remote, computer tablets,etc. Once you have been antibiotics for 2 days, change your toothbrush and your pillowcase. - get plenty of restful sleep - humidify the air in the room where you sleep - boil water, run a hot steam shower, vaporizer, cups of water by heat register - okay to take over the counter decongestant and cough medication - use nasal spray as prescribed - Take antibiotics as prescribed until gone. This medication may cause diarrhea - eating yogurt or taking pro-biotics may help decrease diarrhea - contact your doctor or return with questions or concerns - Billing Disposition and Condition Condition: STABLE Disposition: Home
[2018-04-26 07:16] VITALS: BP 164/104
[2018-04-26] MEDS ORDERED: Ibuprofen TAB* 600 MG PO ONE (07:29)
[2018-04-26 07:39] LABS: Influenza A Molecular NEGATIVE (Negative); Influenza B Molecular NEGATIVE (Negative)
== END 2018-04-26 08:40 | disposition home or self-care (01) ==
LOC: UCEAST 07:06
DX: J02.9 Acute pharyngitis, unspecified (principal); J32.9 Chronic sinusitis, unspecified; Z88.6 Allergy status to analgesic agent; Z91.048 Other nonmedicinal substance allergy status
CPT/HCPCS: 87651; 99212; A9270-GY; G0463